=== PATIENT | male | born 1975 | race Caucasian/White ===

== ENCOUNTER → 2018-04-04 18:46 | Outpatient (REF) | payer BC, SELFPAY | LOC: LAB 18:46 | PROVIDERS: Visit Provider Otolaryngology | DX: H61.121 Hematoma of pinna, right ear (principal); H61.011 Acute perichondritis of right external ear; H92.01 Otalgia, right ear | CPT/HCPCS: 87070; 87205 ==

== ENCOUNTER → 2018-06-13 10:55 | Outpatient (CLI) | payer BC, SELFPAY ==
--- NOTE | 2018-06-13 10:58 | DI.RAD.S_ITS ---
PROCEDURE: XR CHEST 2V INDICATIONS: asthma TECHNIQUE: 2 views of the chest were acquired. COMPARISON: [facility], , CHEST 2 VIEW, 03/28/2015, 18:43. FINDINGS: Surgical changes and devices: None. Lungs and pleura: No pleural effusions or pneumothorax. Lungs are clear. Lung volumes are increased with flattening of the hemidiaphragms suggesting COPD/asthma. Mediastinum: Mediastinal contours are normal. Heart size is normal. Bones and chest wall: No suspicious bony abnormalities. Soft tissues appear unremarkable. IMPRESSION: No acute cardiopulmonary disease. Dictated by: Janusz SOLIZ Interpreted: Emil Rehman MD on 06/13/2018 at 11:18 Approved by: Emil Rehman M.D. on 06/13/2018 at 15:32
[2018-06-13 11:28] LABS: Add Manual Diff / Slide Review NO; Basophils Percent Auto 0.2 % (0-2); Hematocrit 45.2 % (41-53); Hemoglobin 15.2 g/dL (13.5-17.5); Lymphocytes Percent Auto 31.9 % (25-40); Mean Corpuscular HGB Conc 33.6 % (30-36); Mean Corpuscular Hemoglobin 31.2 PG (26-34); Mean Corpuscular Volume 92.8 fL (80-100); Monocytes Percent Auto 8.2 % (3-14); Neutrophils Absolute Auto 3400 /uL (3000-5900); Neutrophils Percent Auto 53.7 % (50-75); Platelet Count 271 X10^3/uL (150-400); Red Blood Cell Count 4.87 X10^6/uL (4.5-5.9); Red Cell Distribution Width 13.6 % (11.6-14.8); White Blood Cell Count 6.3 X10^3/uL (4.5-11.0)
[2018-06-13 12:06] LABS: Alanine Aminotransferase 22 IU/L (21-72); Albumin 4.3 g/dL (3.5-5.0); Albumin Globulin Ratio 1.7 (1.0-2.8); Alkaline Phosphatase 67 U/L (38-126); Aspartate Aminotransferase 18 IU/L (17-59); Bilirubin Total 0.7 mg/dL (0.2-1.3); Blood Urea Nitrogen 13 mg/dL (9-20); Calcium 9.8 mg/dL (8.4-10.2); Carbon Dioxide 28 mmol/L (22-32); Chloride 105 mmol/L (98-107); Cholesterol 192 mg/dL (140-199); Estimated Glomerular Filt Rate > 60.0 mL/min (>60); Globulin 2.5 g/dL (1.7-4.1); Glucose 101 mg/dL (70-100); HDL Cholesterol 39 mg/dL (40-60); HEMOLYSIS 20 (0-50); LDL Cholesterol Calculated 122 mg/dL (<100); Sodium 146 mmol/L (137-145); Total Protein 6.8 g/dL (6.3-8.2); Triglycerides 157 mg/dL (35-150)
[2018-06-13 12:35] LABS: Thyroid Stimulating Hormone 1.84 uIU/mL (0.47-4.68)
== END ==
PROVIDERS: Visit Provider Family Medicine
DX: J45.909 Unspecified asthma, uncomplicated (principal)
CPT/HCPCS: 36415; 71046; 80053; 80061; 84443; 85025

== ENCOUNTER → 2018-06-20 14:57 | Outpatient (CLI) | payer BC, SELFPAY ==
--- NOTE | 2018-06-27 08:18 | PM.PFT.1 ---
Pulmonary Function Test Referral & Results Date Patient Seen: 06/20/18 Requesting provider: Cliff Polanco Indication: Reactive airways Results: The spirometry demonstrates an FVC of 4.58 L which is 82% of predicted. The FEV1 was measured at 1.41 L which is 32% of predicted. The FEV1/FVC ratio was 31 which is 38% of predicted. Following the administration of bronchodilator there was 20% improvement in FEV1 and 92% improvement in FEF 25-75%. Lung volumes show an SVC of 4.44 L which is 83% of predicted. No diffusing capacity was performed The maximum voluntary ventilation was reduced Interpretation: This study demonstrates severe obstructive lung disease with an FEV1 of 32% of predicted. However there was significant benefit following bronchodilator as noted above both in small and large airway flows based on improvement in FEV1 and FEF 25-75% There is also mild restrictive lung disease present based on slight reduction in lung volumes
== END ==
PROVIDERS: PCP Family Medicine; Visit Provider Family Medicine
DX: J45.909 Unspecified asthma, uncomplicated (principal)
CPT/HCPCS: 94010; 94060; 94726; 94729

== ENCOUNTER 2021-06-06 20:05 | Emergency (ER) | payer OTHER, SELFPAY ==
[2021-06-06] VITALS (8 sets, daily range): BP systolic 109–124; BP diastolic 62–69; PULSE 59–69; RESP 8–14; O2SAT 95–98; BMI 24.8
--- NOTE | 2021-06-06 20:14 | DI.RAD.S_ITS ---
PROCEDURE: XR CHEST 1V INDICATIONS: chest pain TECHNIQUE: One view of the chest was acquired. COMPARISON: [facility], CR, XR CHEST 2V, 06/13/2018, 10:33. FINDINGS: Surgical changes and devices: None. Lungs and pleura: Lungs are clear. No pleural effusions or pneumothorax. Mediastinum: Mediastinal contours appear normal. Heart size is normal. Bones and chest wall: No suspicious bony lesions. Overlying soft tissues appear unremarkable. IMPRESSION: 1. No acute cardiopulmonary disease. Dictated by: Carmelo Bowman M.D. on 06/06/2021 at 21:10 Approved by: Carmelo Bowman M.D. on 06/06/2021 at 21:10
[2021-06-06 20:20] LABS: Add Manual Diff / Slide Review NO; Basophils Absolute Auto 200 /uL (0-100); Basophils Percent Auto 1.2 % (0-2); Eosinophils Absolute Auto 400 /uL (0-450); Eosinophils Percent Auto 2.4 % (2-4); Hematocrit 46.4 % (41-53); Hemoglobin 15.3 g/dL (13.5-17.5); Lymphocytes Absolute Auto 4700 /uL (1100-4500); Lymphocytes Percent Auto 29.4 % (25-40); Mean Corpuscular HGB Conc 32.9 % (30-36); Mean Corpuscular Hemoglobin 30.9 PG (26-34); Mean Corpuscular Volume 93.9 fL (80-100); Monocytes Absolute Auto 1100 /uL (0-900); Monocytes Percent Auto 6.7 % (3-14); Neutrophils Absolute Auto 9600 /uL (1500-7000); Neutrophils Percent Auto 60.3 % (50-75); Platelet Count 300 X10^3/uL (150-400); Red Blood Cell Count 4.94 X10^6/uL (4.5-5.9); Red Cell Distribution Width 13.7 % (11.6-14.8); White Blood Cell Count 15.9 X10^3/uL (4.5-11.0)
[2021-06-06 20:30] LABS: Alanine Aminotransferase 23 IU/L (<50); Albumin 4.4 g/dL (3.5-5.0); Albumin Globulin Ratio 1.7 (1.0-2.8); Alkaline Phosphatase 70 U/L (38-126); Aspartate Aminotransferase 30 IU/L (17-59); Bilirubin Total 0.9 mg/dL (0.2-1.3); Blood Urea Nitrogen 15 mg/dL (9-20); Calcium 9.2 mg/dL (8.4-10.2); Carbon Dioxide 25 mmol/L (22-32); Chloride 106 mmol/L (98-107); Creatine Kinase 81 U/L (55-170); Estimated Glomerular Filt Rate > 60.0 mL/min (>60); Globulin 2.6 g/dL (1.7-4.1); Glucose 112 mg/dL (70-100); HEMOLYSIS 17 (0-50); Lipase 117 U/L (23-300); Magnesium 2.3 mg/dL (1.6-2.3); Potassium 3.7 mmol/L (3.4-5.1); Sodium 139 mmol/L (137-145)
--- NOTE | 2021-06-06 20:40 | ED_ITS ---
HPI - General Adult General Chief complaint: Syncope Stated complaint: possible seizue, vommiting, syncope Time Seen by Provider: 06/06/21 20:09 History of Present Illness HPI narrative: 45-year-old gentleman recently diagnosed with a right inguinal hernia after multiple visits to [facility] and ultrasound confirming today with a surgical appointment scheduled for tomorrow. He has had significant pain and today was having ?fucking horrible pain? with associated nausea diaphoresis and a syncopal episode. He fell to the floor has the minor scratch to his left ear his partner noted approximately 20 seconds of ?twitching? followed by 1-2 minutes of decreased responsiveness. 911 was called and when medics arrived on scene he was found to be reviving with a blood pressure of 80/40 that responded nicely to a fluid bolus. On arrival in the ER he is awake, alert appropriate with systolic blood pressure of 115 still complaining of nausea but not having any inguinal hernia pain at this time Related Data Previous Rx's Medication Instructions Recorded albuterol sulfate 90 mcg/actuation 2 puff INHALATION QID PRN #6.7 gram 07/16/18 aerosol inhaler ipratropium 20 mcg-albuterol 100 2 puff INHALATION BID #4 gram 07/16/18 mcg/actuation mist for inhalation (Combivent Respimat) ondansetron 4 mg disintegrating 4 mg PO Q6H PRN #14 tab 06/07/21 tablet oxycodone-acetaminophen 5 mg-325 1 tab PO Q6H PRN #15 tab 06/07/21 mg tablet Allergies Allergy/AdvReac Type Severity Reaction Status Date / Time No Known Drug Allergies Allergy Verified 07/16/18 15:33 Review of Systems Review of Systems Narrative: Pertinent positive and negative findings as per HPI Remainder of review of systems is otherwise unremarkable for Constitutional: Fevers, chills, ENT: No sore throat, neck pain, ear pain CV: Chest pain, palpitations, Respiratory: Cough, wheeze, dyspnea GI: diarrhea, : Dysuria, hematuria, Patient History Social History Smoking Status: Former smoker alcohol intake: never Smoking Status: Former smoker (quit 09/2015) Exam Narrative Exam Narrative: General: Healthy appearing, in no acute distress. Able to give a complete and coherent history. Well-nourished well-developed HEENT: Moist mucous membranes, normal sclera with reactive pupils, minor scratch to the outer helix of the left ear, bleeding is controlled Neck: supple Respiratory: Lungs are clear to auscultation, no wheezing no rales no rhonchi. Full and symmetrical air movement Cardiac: Regular rate and rhythm no murmurs no bruits Abdomen: Soft, nontender, good bowel tones, no flank pain Groin: No tenderness at this point and no palpable hernias clearly not incarcerated at this time Skin: Warm and dry, no rashes Neurologic: Grossly neurologically intact with no obvious asymmetries or abnormalities Extremities: No trauma, well perfused Psych: Cooperative, appropriate insight and affect Initial Vital Signs Initial Vital Signs: Vital Signs Pulse Rate 64 06/06/21 20:15 Pulse Oximetry 97 06/06/21 20:15 Course Orders Ordered: ED Orders 06/06/21 20:10 Complete Blood Count AUTO DIFF Stat Comprehensive Metabolic Panel Stat Lipase Stat Magnesium Stat NT-proBNP (BNP-Adult 18+) Stat Troponin & CK Cardiac Panel Stat 06/06/21 20:14 XR chest 1V Stat EKG-12 Lead Stat 06/06/21 20:24 COVID19 -Nasal swab/Pre-Proc Stat 06/06/21 23:36 CT cervical spine wo con Stat CT head/brain wo con Stat Hydromorphone HCl (Hydromorphone 0.5 Mg Inj) 0.5 mg IV Q15MIN PRN PRN Reason: Pain, Last Admin: 06/07/21 01:22 Dose: 0.5 mg Documented by: SADIA Discontinued Medications Hydromorphone HCl (Hydromorphone 0.5 Mg Inj) 0.5 mg IV NOW ONE Stop: 06/06/21 23:30 Last Admin: 06/06/21 23:34 Dose: 0.5 mg Documented by: RAYMUNDO Ketorolac Tromethamine (Ketorolac 30 Mg/Ml Vial) 15 mg IV NOW ONE Stop: 06/06/21 23:22 Last Admin: 06/06/21 23:56 Dose: Not Given Documented by: SADIA Ondansetron HCl (Ondansetron 4 Mg/2 Ml Inj) 4 mg IV NOW ONE Stop: 06/06/21 23:57 Last Admin: 06/06/21 23:59 Dose: 4 mg Documented by: SADIA Ondansetron HCl (Ondansetron 4 Mg/2 Ml Inj) 4 mg IV NOW ONE Stop: 06/07/21 03:57 Ondansetron HCl (Ondansetron 4 Mg Odt Prepack) 1 bottle MISC SEEINSTR ONE Stop: 06/07/21 03:57 Oxycodone/Acetaminophen (Oxycodone/Acetaminophen 5/325 Tablet) 1 tab PO NOW ONE Stop: 06/07/21 03:57 Oxycodone/Acetaminophen (Oxycodone/Apap 5/325 Prepack) 1 bottle MISC SEEINSTR ONE Stop: 06/07/21 03:57 Vital Signs Vital signs: Vital Signs - 8 hr 06/06/21 20:15 06/06/21 20:30 06/06/21 21:00 Pulse Rate 64 59 L 60 Respiratory Rate 14 13 Blood Pressure 117/69 124/69 Pulse Oximetry 97 97 98 06/06/21 21:30 06/06/21 22:00 06/06/21 22:30 Pulse Rate 63 61 66 Respiratory Rate 11 L 12 8 L Blood Pressure 109/63 112/63 113/68 Pulse Oximetry 96 95 96 Medical Decision Making Lab Data Result diagrams: 06/06/21 20:10 06/06/21 20:10 Labs: Lab Results 06/06/21 06/06/21 06/06/21 Range/Units 20:10 20:10 20:24 WBC 15.9 H (4.5-11.0) X10^3/uL RBC 4.94 (4.5-5.9) X10^6/uL Hgb 15.3 (13.5-17.5) g/dL Hct 46.4 (41-53) % MCV 93.9 (80-100) fL MCH 30.9 (26-34) PG MCHC 32.9 (30-36) % RDW 13.7 (11.6-14.8) % Plt Count 300 (150-400) X10^3/uL Neut % (Auto) 60.3 (50-75) % Lymph % (Auto) 29.4 (25-40) % [place] % (Auto) 6.7 (3-14) % Eos % (Auto) 2.4 (2-4) % Baso % (Auto) 1.2 (0-2) % Neut # (Auto) 9600 H (2829-8153) /uL Lymph # (Auto) 4700 H (0787-1363) /uL [place] # (Auto) 1100 H (0-900) /uL Eos # (Auto) 400 (0-450) /uL Baso # (Auto) 200 H (0-100) /uL Sodium 139 (137-145) mmol/L Potassium 3.7 (3.4-5.1) mmol/L Chloride 106 (98-107) mmol/L Carbon Dioxide 25 (22-32) mmol/L BUN 15 (9-20) mg/dL Creatinine 1.00 (0.66-1.25) mg/dL Estimated GFR > 60.0 (>60) mL/min BUN/Creatinine Ratio 15.0 (6-22) Glucose 112 H (70-100) mg/dL Calcium 9.2 (8.4-10.2) mg/dL Magnesium 2.3 (1.6-2.3) mg/dL Total Bilirubin 0.9 (0.2-1.3) mg/dL AST 30 (17-59) IU/L ALT 23 (<50) IU/L Alkaline Phosphatase 70 (38-126) U/L Total Creatine Kinase 81 (55-170) U/L CK-MB (CK-2) TNP CK-MB (CK-2) Rel Index TNP Troponin I < 0.012 (0.01-0.034) ng/mL NT-Pro-B Natriuret Pep 54 (<125) pg/mL Total Protein 7.0 (6.3-8.2) g/dL Albumin 4.4 (3.5-5.0) g/dL Globulin 2.6 (1.7-4.1) g/dL Albumin/Globulin Ratio 1.7 (1.0-2.8) Lipase 117 (23-300) U/L SARS-CoV-2 (PCR) Negative (Negative) Imaging Data CT scan - head: Radiologist's Impression: No visualized skull fracture. If high clinical suspicion for skull base fracture, recommend repeating exam within cross- sectional imaging less than 5 mm. No acute intracranial process. Partial left mastoid effusion. Zeb Forrest, DO CT - cervical spine: Radiologist's Impression: No fracture or traumatic subluxation involving the cervical spine. Degenerative changes greatest at C6-C7 where there is mild intervertebral disc height loss reactive endplate change. Some fluid within the left mastoid air cells. Emphysematous disease of the visualized lung apices Zeb Forrest, Reformatted CT scan with fine cuts through basilar skull: Radiologist's Impression: No CT evidence of acute intracranial pathology. Left mastoid effusion. Basilar skull fracture was not confirmed on this exam. Ty Arellano MD ECG Data Interpretation: Sinus Gilberto at a rate of 56 Normal intervals, slightly leftward axis No acute ischemic changes MDM Narrative Medical decision making narrative: 45-year-old gentleman who comes in after a syncopal episode. He reports that he has been having significant pain from a right inguinal hernia. Has been seen at [facility] a couple of times has appointment with his surgeon tomorrow. The pain was apparently so bad that he became diaphoretic and then passed out. Initial report was that he scraped his ear on the wall but did not specifically hit his head. Patient had no complai nts at that time. Syncopal workup was done and only significant abnormality is an elevated white blood cell count which could well simply be demargination. He has no localizing signs or symptoms of infection otherwise. 1130 patient is re-examined, findings are reviewed and his is here now to corroborate the rest of the story. She reports that he hit the left ear and side of his head on the toilet with a very heavy fall. Initially he had had a bit of blood around his ear that was cleaned off there is a small scratch on the outside of his ear that was the presumed source of the blood. On re-examination he actually has a significant amount of blood that has continued to drain out of the ear that is appreciated on the sheets and I am concerned that there is also CSF. Otoscope reveals hemotympanum on the left side. Repeat exam of his cervical spine now indicates tenderness along the entire cervical spine he also has mastoid tenderness and tenderness along the base worse skull area. Certainly concerning at this time for a basilar skull fracture with CSF leak. CT scan of the head and cervical spine are done. He is now complaining of a headache which had not initially been his complaint. He is given Dilaudid for pain control. His initial complaint of the right inguinal hernia pain is not problematic at this time. 120am patient was able to sleep comfortably after .5mg of the law did. CT scan shows partial left mastoid effusion but no obvious skull fracture. Patient is re-examined there is no longer any additional fluid or blood leaking from the ER. Given large amount that was noted previously I still am strongly suspicious for a basilar skull fracture with possible CSF leak. Will follow Radiology recommendations with repeat CT scan with thin cross-sectional imaging less than 5 mm. Findings are concerned are reviewed with patient and his both of who m agree with additional imaging. Reformatted CT scan is able to confirm the absence of a basilar skull fracture. He does have a left mastoid effusion. He does have pain at the site of impact at the base of his skull however the right inguinal pain is now significantly improved. At this point he is safe for home discharge and will follow-up with his general surgeon regarding the inguinal hernia tomorrow Discharge Plan Departure Patient Disposition: Home Clinical Impression: Syncope, Inguinal hernia, Concussion, Hematotympanum of left ear, Brain concussion Instructions: DI for Syncope in Adults (Fainting) Activity Restrictions/Additional Instructions: Thank you for coming in today Please keep your appointment with the surgeon regarding your right sided hernia. I have given you additional Percocet to use for pain control. Prescription for Percocet as well as ondansetron for nausea have both been transmitted to [facility] and [facility] is for you to pickle cutter later today The pain you experienced from your hernia caused a syncopal episode with concerning head injury. With CT scans and special views obtained we have confirmed there is not a basilar skull fracture. There is no bleeding inside her head and there was no acute cervical spine injury. From this fall, you de finitely have a concussion and I do anticipate that your going to be even more sore over the next 24 hours. Using 400 mg of ibuprofen (2 quik-vhe-wgewvmi pills) and 1 Tylenol every 6 hours can be very helpful in controlling pain. For severe pain using to ibuprofen and 1 Percocet will be helpful. You may find that ice to the neck and back of your head is helpful also. Prescriptions: New oxycodone-acetaminophen 5-325 mg tablet 1 tab PO Q6H PRN (Reason: pain) Qty: 15 RF: 0 ondansetron 4 mg tablet,disintegrating 4 mg PO Q6H PRN (Reason: nausea and vomiting) Qty: 14 RF: 0 No Action ipratropium-albuterol [Combivent Respimat] 20-100 mcg/actuation mist 2 puff INHALATION BID Qty: 4 RF: 5 albuterol sulfate 90 mcg/actuation HFA aerosol inhaler 2 puff INHALATION QID PRN (Reason: shortness of breath) Qty: 6.7 RF: 5 Referrals: Walker Greenfield MD [Primary Care Provider] -
[2021-06-06 20:42] LABS: NT-proBNP (BNP-Adult 18+) 54 pg/mL (<125); Troponin I < 0.012 ng/mL (0.01-0.034)
[2021-06-06 20:56] LABS: COVID19 -Nasal RAPID Negative (Negative)
[2021-06-06] MEDS: HYDROMORPHONE 0.5 MG INJ IV (23:34)
--- NOTE | 2021-06-06 23:36 | DI.CT.S_ITS ---
PROCEDURE: CT HEAD/BRAIN WO CON INDICATIONS: fall. hemotympanum. concern for CSF leak, basilar skull fracture TECHNIQUE: Noncontrast 4.5 mm thick angled axial sections acquired from the foramen magnum to the vertex, with coronal and sagittal reformats. For radiation dose reduction, the following was used: automated exposure control, adjustment of mA and/or kV according to patient size. COMPARISON: [facility], CT, CT CERVICAL SPINE WO CON, 06/06/2021, 23:42. FINDINGS: Image quality: Excellent. CSF spaces: Basal cisterns are patent. No extra-axial fluid collections. Ventricles are normal in size and shape. Brain: No midline shift. No intracranial masses or hemorrhage. Gustafson-white matter interface is normal. Skull and face: Calvarium and visualized facial bones are intact, without suspicious lesions. No definitive skull base fracture. Sinuses: Scattered fluid is noted within the left mastoid air cells. IMPRESSION: 1. No acute intracranial process. 2. No definitive skull base fracture. If clinical concern persists, temporal bone CT is recommended. The above findings are concordant with preliminary report. Dictated by: Marie Ernst M.D. on 06/07/2021 at 7:42 Approved by: Marie Ernst M.D. on 06/07/2021 at 7:43
--- NOTE | 2021-06-06 23:36 | DI.CT.S_ITS ---
PROCEDURE: CT CERVICAL SPINE WO CON INDICATIONS: fall, cervical spine tenderness TECHNIQUE: Noncontrast 3 mm thick sections acquired from the skull base to the T4 level. Sagittal and coronal reformats were then constructed. For radiation dose reduction, the following was used: automated exposure control, adjustment of mA and/or kV according to patient size. COMPARISON: None. FINDINGS: Image quality: Excellent. Bones: No fractures or dislocations. Visualized superior ribs are intact. Multilevel degenerative changes are present most notable at C6-7 with disc space narrowing, subchondral sclerosis and anterior osteophytes. Soft tissues: Prevertebral soft tissues are normal in thickness. No paravertebral hematomas. No apical pneumothoraces. Emphysematous changes are present. Fluid is noted within the left mastoid air cells. IMPRESSION: Degenerative changes without visualized fracture. The above findings are concordant with preliminary report. Dictated by: Marie Ernst M.D. on 06/07/2021 at 7:43 Approved by: Marie Ernst M.D. on 06/07/2021 at 7:52
[2021-06-06] MEDS: ONDANSETRON 4 MG/2 ML INJ IV (23:59)
[2021-06-07] VITALS (10 sets, daily range): BP systolic 126; BP diastolic 70; PULSE 64–73; RESP 10–13
[2021-06-07] MEDS: HYDROMORPHONE 0.5 MG INJ IV (01:22)
[2021-06-07] MEDS: OXYCODONE/APAP 5/325 PREPACK 1 BOTTLE MISC (04:06)
[2021-06-07] MEDS: ONDANSETRON 4 MG ODT PREPACK 1 BOTTLE MISC (04:06)
[2021-06-07] MEDS: ONDANSETRON 4 MG/2 ML INJ IV (04:06)
[2021-06-07] MEDS: OXYCODONE/ACETAMINOPHEN 5/325 TABLET 1 TAB PO (04:06)
== END 2021-06-07 04:32 | disposition home or self-care (01) ==
PROVIDERS: Emergency Provider Emergency Medicine; PCP Family Medicine
DX: R55 Syncope and collapse (principal); K40.90 Unilateral inguinal hernia, without obstruction or gangrene, not specified as recurrent; S06.0X0A Concussion without loss of consciousness, initial encounter; H74.8X2 Other specified disorders of left middle ear and mastoid; W18.09XA Striking against other object with subsequent fall, initial encounter; Z20.822 Contact with and (suspected) exposure to COVID-19
CPT/HCPCS: 70450; 71045; 72125; 80053; 82550; 83690; 83735; 83880; 84484; 85025; 87635; 93005; 93010; 96374; 96375; 96376; 99284; C9803; J1170; J2405

== ENCOUNTER 2023-11-30 10:39 | Inpatient (IN) | payer OTHER, SELFPAY ==
[2023-11-30] VITALS (64 sets, daily range): BP systolic 86–136; BP diastolic 56–82; PULSE 0–91; RESP 9–36; TEMP 35.3–36.2; O2SAT 96–100; BMI 53.8; BMI 24.3
--- NOTE | 2023-11-30 | DI.RAD.S_ITS ---
PROCEDURE: XR CHEST 1V INDICATIONS: left chest tube TECHNIQUE: One view of the chest was acquired. COMPARISON: [facility], CR, XR CHEST 1V, 11/30/2023, 10:51. FINDINGS: Surgical changes and devices: Left upper and mid lung pulmonary sutures. Left-sided chest tube. Lungs and pleura: Lungs are clear. No pleural effusions or definite pneumothorax. Mediastinum: Mediastinal contours appear normal. Heart size is normal. Bones and chest wall: No suspicious bony lesions. Overlying soft tissues appear unremarkable. Left chest wall subcutaneous air. IMPRESSION: Postsurgical changes in the left lung. Left-sided chest tube remains in place with no definite pneumothorax. Dictated by: Soto Chambers M.D. on 11/30/2023 at 19:48 Approved by: Soto Chambers M.D. on 11/30/2023 at 19:50
--- NOTE | 2023-11-30 10:41 | ED_ITS ---
HPI - General Adult General Chief complaint: Shortness of Breath/Dyspnea Stated complaint: SOB Time Seen by Provider: 11/30/23 10:40 Source: patient and EMS Mode of arrival: EMS Limitations: no limitations History of Present Illness HPI narrative: Patient is a 47-year-old male. Approximately 2 months ago underwent what sounds like a partial lobectomy by Dr. Hernandez at the [facility]. Patient states that this was to reduce the size of his lungs secondary to COPD. States things have gone well. Is at his normal state of health until earlier this morning he coughed and then had sudden left-sided chest discomfort and shortness of breath. EMS was called. Upon their arrival found the patient to be hypoxic in the 80s. He was placed on a non-rebreather. Oxygen saturations are now in the 90s. They also report that he did have 1 episode of hypotension. Upon arrival patient is having left-sided chest discomfort and shortness of breath. No fevers. Related Data Previous Rx's Medication Instructions Recorded albuterol sulfate 90 mcg/actuation 2 puff inhalation QID PRN 07/16/18 aerosol inhaler shortness of breath #6.7 grams ipratropium 20 mcg-albuterol 100 2 puff inhalation BID #4 grams 07/16/18 mcg/actuation mist for inhalation (Combivent Respimat) ondansetron 4 mg disintegrating 4 mg PO Q6H PRN nausea and 06/07/21 tablet vomiting #14 tabs oxycodone-acetaminophen 5 mg-325 1 tab PO Q6H PRN pain #15 tabs 06/07/21 mg tablet Allergies Allergy/AdvReac Type Severity Reaction Status Date / Time No Known Drug Allergies Allergy Verified 07/16/18 15:33 Review of Systems Review of Systems ROS Unobtainable: All systems reviewed & are unremarkable except as noted in HPI and below Patient History Social History Smoking Status: Former smoker alcohol intake: never Smoking Status: Former smoker Exam Initial Vital Signs Initial Vital Signs: Vital Signs Temperature 95.6 F L 11/30/23 10:45 Pulse Rate 79 11/30/23 10:45 Respiratory Rate 12 11/30/23 10:45 Blood Pressure 86/56 L 11/30/23 10:45 Pulse Oximetry 97 11/30/23 10:45 Oxygen Delivery Method Non -Rebreather 11/30/23 10:45 Oxygen Flow Rate 15 11/30/23 10:45 Const General: cooperative and No ill appearing HENMT Head: normal to inspection and normocephalic Resp Other: His in mild respiratory distress. Is on oxygen by non-rebreather. Clear breath sounds on the right. No breath sounds on the left. Cardio Rate: regular rate Rhythm: regular rhythm GI Inspection: normal to inspection and non-distended Skin General: no rashes or lesions noted Extrem General: normal to inspection and capillary refill normal Procedures Chest Tube Chest Tube 1: Chest Tube Location: left Size of Tube (cm): 28 Chest Tube Prep: Yes betadine prep and sterile drapes applied Local Anesthetic: lidocaine 1% Amount of anesthesia used (mL): 10 Incision Made With: #11 blade Post Procedure: sutured to skin and sterile dressing applied Tube Drainage: none Post Procedure CXR?: Yes Patient Tolerated Procedure: Yes Scores GCS Naina coma scale eye opening: Spontaneous Compton coma scale verbal response: Orientated Compton coma scale motor response: Obey commands Compton coma scale total score: 15 Course Orders Ordered: ED Orders 11/30/23 10:39 Complete Blood Count AUTO DIFF Stat Comprehensive Metabolic Panel Stat Lipase Stat 11/30/23 10:41 XR chest 1V Stat EKG-12 Lead Stat 11/30/23 11:12 Covid-19 + FLU A/B + RSV - PCR Stat Sodium Chloride (Normal Saline 0.9%) 1,000 mls @ 125 mls/hr IV CONT CAESAR Last Admin: 11/30/23 11:26 Dose: 125 mls/hr Documented By: NEHA Discontinued Medications Morphine Sulfate (Morphine 4 Mg/Ml Inj) 4 mg IV NOW ONE Stop: 11/30/23 11:19 Last Admin: 11/30/23 11:00 Dose: 4 mg Documented By: NEHA Morphine Sulfate (Morphine 4 Mg/Ml Inj) 4 mg IV NOW ONE Stop: 11/30/23 11:24 Last Admin: 11/30/23 11:30 Dose: 4 mg Documented By: NEHA Ondansetron HCl (Ondansetron 4 Mg/2 Ml Inj) 4 mg IV NOW ONE Stop: 11/30/23 11:24 Last Admin: 11/30/23 11:30 Dose: 4 mg Documented By: NEHA Vital Signs Vital signs: Vital Signs - 8 hr 11/30/23 10:45 11/30/23 10:46 11/30/23 10:48 Temperature 95.6 F L Pulse Rate 79 82 Respiratory Rate 12 20 Blood Pressure 86/56 L 96/67 Pulse Oximetry 97 98 Oxygen Delivery Method Non -Rebreather Oxygen Flow Rate 15 11/30/23 10:48 11/30/23 10:50 11/30/23 10:50 Temperature Pulse Rate 71 80 Respiratory Rate 13 13 Blood Pressure 121/78 Pulse Oximetry 97 98 Oxygen Delivery Method Oxygen Flow Rate 11/30/23 10:56 11/30/23 10:56 11/30/23 11:00 Temperature Pulse Rate 91 H 29 L Respiratory Rate 23 36 H Blood Pressure 110/79 110/68 Pulse Oximetry 96 98 Oxygen Delivery Method Oxygen Flow Rate 11/30/23 11:02 11/30/23 11:02 11/30/23 11:04 Temperature Pulse Rate 0 L 54 L 51 L Respiratory Rate 25 H 22 Blood Pressure Pulse Oximetry 100 100 Oxygen Delivery Method Oxygen Flow Rate 11/30/23 11:05 Temperature Pulse Rate Respiratory Rate Blood Pressure 122/65 Pulse Oximetry Oxygen Delivery Method Oxygen Flow Rate Medical Decision Making Lab Data Lab results reviewed: Yes I reviewed the patient's lab results. 11/30/23 10:39 11/30/23 10:39 Labs: Lab Results 11/30/23 Range/Units 10:39 WBC 9.4 (4.5-11.0) X10^3/uL RBC 4.85 (4.5-5.9) X10^6/uL Hgb 15.3 (13.5-17.5) g/dL Hct 46.0 (41-53) % MCV 94.8 (80-100) fL MCH 31.5 (26-34) PG MCHC 33.2 (30-36) % RDW 13.7 (11.6-14.8) % Plt Count 343 (150-400) X10^3/uL Neut % (Auto) 56.5 (50-75) % Lymph % (Auto) 33.6 (25-40) % [place] % (Auto) 7.2 (3-14) % Eos % (Auto) 2.0 (2-4) % Baso % (Auto) 0.7 (0-2) % Neut # (Auto) 5300 (1044-7027) /uL Lymph # (Auto) 3200 (8660-7472) /uL [place] # (Auto) 700 (0-900) /uL Eos # (Auto) 200 (0-450) /uL Baso # (Auto) 100 (0-100) /uL Sodium 143 (137-145) mmol/L Potassium 4.5 (3.4-5.1) mmol/L Chloride 108 H (98-107) mmol/L Carbon Dioxide 29 (22-32) mmol/L BUN 10 (9-20) mg/dL Creatinine 0.93 (0.66-1.25) mg/dL Estimated GFR > 60 (>60) mL/min BUN/Creatinine Ratio 10.8 (6-22) Glucose 123 H (70-100) mg/dL Calcium 9.5 (8.4-10.2) mg/dL Total Bilirubin 0.9 (0.2-1.3) mg/dL AST 24 (17-59) IU/L ALT 19 (<50) IU/L Alkaline Phosphatase 84 (38-126) U/L Total Protein 7.5 (6.3-8.2) g/dL Albumin 4.4 (3.5-5.0) g/dL Globulin 3.1 (1.7-4.1) g/dL Albumin/Globulin Ratio 1.4 (1.0-2.8) Lipase 263 (23-300) U/L [facility] Narrative Medical decision making narrative: Upon arrival patient was not hypoxic however he was on non-rebreather. He had no breath sounds on the left. Bedside ultrasound not show any lung sliding. Initially attempted placing a pigtail catheter however had quite a bit of difficulty advancing the catheter. On a supervisor electric motor testing chest x-ray appeared that it was in the thoracic cavity but there was still a pneumothorax and I felt that it would not be appropriate to treat his condition so it was removed. I then placed a left-sided 28 Croatian chest tube. During the placement of the chest tube the patient had an episode of bradycardia. Became unresponsive. He did require approximately 10 seconds of chest compressions however once I placed the chest tube pulses returned. Unsure whether or not he had a syncopal episode as he was having quite a bit of discomfort at the time. He also potentially had tension pneumothorax that was resolved with placement of the tube. After that 1 brief episode the patient is alert and oriented. We are able to wean him off of the non-rebreather in his now on 4 L of nasal cannula. Chest x-ray does show re-expansion of the lung. I did discuss the case with Dr. Lane on-call with General surgery who asked that I call thoracic surgery at the [facility]. I did talk with the thoracic surgeon on-call. They stated that if the lung has re-expanded and there was no air leak (which there was not) that this would be managed as a routine chest tube. They did recommend prolonging the amount of time that the patient is on suction even up to 48 hours before placing him to water seal. I then discussed all this with Dr. Lane. They also stated that we do need to observe for potential COPD exacerbation. Dr. Lane is comfortable accepting patient at this facility. Discussed the need for admission with the patient and family at bedside. Expressed understanding and agreement. Critical Care Time Critical Care Time Critical Care Time: Yes Total Critical Care Time: 35 Attestation: The high probability of a clinically significant, sudden or life threatening deterioration of the [respiratory] system(s) required my full and direct attention, intervention and personal management. The aggregate critical care time was [35] minutes. This time is in addition to time spent performing reported procedures but includes the following: [x] Data Review and interpretation [x] Patient assessment and monitoring of vital signs [x] Documentation [x] Medication orders and management Discharge Plan Departure Patient Disposition: Admitted As Inpatient Clinical Impression: COPD (chronic obstructive pulmonary disease), Pneumothorax on left Admit Date/Time: 11/30/23 11:57 Admit Provider: Brody Lane
--- NOTE | 2023-11-30 10:41 | DI.RAD.S_ITS ---
PROCEDURE: XR CHEST 1V INDICATIONS: Probable left-sided pneumo TECHNIQUE: One view of the chest was acquired. COMPARISON: [facility], CR, XR CHEST 1V, 06/06/2021, 20:52. [facility], CR, XR CHEST 2V, 06/13/2018, 10:33. FINDINGS: Surgical changes and devices: Left pulmonary sutures. Lungs and pleura: Lungs are clear. No pleural effusions or pneumothorax. Mediastinum: Mediastinal contours appear normal. Heart size is normal. Bones and chest wall: No suspicious bony lesions. Overlying soft tissues appear unremarkable. Subcutaneous emphysema along the left chest wall. IMPRESSION: Postsurgical changes in the left lung. No definite pneumothorax is seen. Dictated by: Zhen Wong M.D. on 11/30/2023 at 11:16 Approved by: Zhen Wong M.D. on 11/30/2023 at 11:18
[2023-11-30] MEDS: MORPHINE 4 MG/ML INJ IV ×4 (11:00→16:30)
--- NOTE | 2023-11-30 11:03 | PC.NURSE ---
Addendum entered by Aly Martin 11/30/23 12:44: episode of compression lasted approx 10 seconds. Original Note: Patient had a episode of asystole while chest tube insertion. Compression started and pads placed immediately. Patient had return of spontaneous circulation within 15 seconds. MD at beside. patient vitals now stable.
[2023-11-30] MEDS: SODIUM CHLORIDE 0.9% 1,000 ML 125 ML IV ×2 (11:26→20:13)
[2023-11-30] MEDS: ONDANSETRON 4 MG/2 ML INJ IV (11:30)
[2023-11-30 11:32] LABS: Add Manual Diff / Slide Review NO; Basophils Absolute Auto 100 /uL (0-100); Basophils Percent Auto 0.7 % (0-2); Eosinophils Absolute Auto 200 /uL (0-450); Hemoglobin 15.3 g/dL (13.5-17.5); Lymphocytes Absolute Auto 3200 /uL (1100-4500); Lymphocytes Percent Auto 33.6 % (25-40); Mean Corpuscular HGB Conc 33.2 % (30-36); Mean Corpuscular Hemoglobin 31.5 PG (26-34); Mean Corpuscular Volume 94.8 fL (80-100); Monocytes Absolute Auto 700 /uL (0-900); Monocytes Percent Auto 7.2 % (3-14); Neutrophils Absolute Auto 5300 /uL (1500-7000); Neutrophils Percent Auto 56.5 % (50-75); Platelet Count 343 X10^3/uL (150-400); Red Blood Cell Count 4.85 X10^6/uL (4.5-5.9); Red Cell Distribution Width 13.7 % (11.6-14.8); White Blood Cell Count 9.4 X10^3/uL (4.5-11.0)
[2023-11-30 11:44] LABS: Alanine Aminotransferase 19 IU/L (<50); Albumin 4.4 g/dL (3.5-5.0); Albumin Globulin Ratio 1.4 (1.0-2.8); Alkaline Phosphatase 84 U/L (38-126); Aspartate Aminotransferase 24 IU/L (17-59); BUN Creatinine Ratio 10.8 (6-22); Bilirubin Total 0.9 mg/dL (0.2-1.3); Blood Urea Nitrogen 10 mg/dL (9-20); Calcium 9.5 mg/dL (8.4-10.2); Carbon Dioxide 29 mmol/L (22-32); Chloride 108 mmol/L (98-107); Estimated Glomerular Filt Rate > 60 mL/min (>60); Globulin 3.1 g/dL (1.7-4.1); Glucose 123 mg/dL (70-100); HEMOLYSIS 34 (0-50); Lipase 263 U/L (23-300); Potassium 4.5 mmol/L (3.4-5.1); Sodium 143 mmol/L (137-145); Total Protein 7.5 g/dL (6.3-8.2)
--- NOTE | 2023-11-30 11:51 | PC.NURSE ---
Patient is alert and oriented now has been since his brief episode of cardiac arrest. is at bedside.
[2023-11-30] MEDS: LIDOCAINE 1% 20 ML (11:59)
[2023-11-30 12:05] LABS: Influenza A - CEPHEID Flu A NEGATIVE (NEGATIVE); Influenza B - CEPHEID Flu B NEGATIVE (NEGATIVE); Respiratory Syncytial Virus Negative (Negative)
[2023-11-30 12:13] LABS: COVID-19 CEPHEID 4-PLEX PCR Negative (Negative)
--- NOTE | 2023-11-30 13:53 | P.HP_ITS ---
History of Present Illness History of Present Illness Date Patient Seen: 11/30/23 Time Patient Seen: 13:53 Chief complaint: SOB Narrative: Karl is a 47-year-old man who presented to the emergency department today with acute onset left chest pain and shortness of breath. An emergent chest tube was placed in the ER by Dr. Chiu for a left pneumothorax with good results. He did have a VATS procedure at [facility] in September for some sort of long condition related to over expansion of the lung. Dr. Chiu spoke to the thoracic surgeon at [facility] who recommended admission for chest tube management and recommended at least 2 days of wall suction before transitioning to water seal. [facility] Social History Smoking Status: Former smoker alcohol intake: never Meds Home Medications and Allergies Home Medications Medication Instructions Recorded Confirmed Type albuterol sulfate 90 mcg/actuation 2 puff inhalation QID PRN 07/16/18 Rx aerosol inhaler shortness of breath #6.7 grams ipratropium 20 mcg-albuterol 100 2 puff inhalation BID #4 grams 07/16/18 Rx mcg/actuation mist for inhalation (Combivent Respimat) ondansetron 4 mg disintegrating 4 mg PO Q6H PRN nausea and 06/07/21 Rx tablet vomiting #14 tabs oxycodone-acetaminophen 5 mg-325 1 tab PO Q6H PRN pain #15 tabs 06/07/21 Rx mg tablet Allergies Allergy/AdvReac Type Severity Reaction Status Date / Time No Known Drug Allergies Allergy Verified 07/16/18 15:33 Exam Vital Signs (past 8 hours): - 11/30/23 10:45 11/30/23 10:46 11/30/23 10:48 Temperature 95.6 F L Pulse Rate 79 82 Respiratory Rate 12 20 Blood Pressure 86/56 L 96/67 Pulse Oximetry 97 98 Oxygen Delivery Method Non -Rebreather Oxygen Flow Rate 15 11/30/23 10:48 11/30/23 10:50 11/30/23 10:50 Temperature Pulse Rate 71 80 Respiratory Rate 13 13 Blood Pressure 121/78 Pulse Oximetry 97 98 Oxygen Delivery Method Oxygen Flow Rate 11/30/23 10:56 11/30/23 10:56 11/30/23 11:00 Temperature Pulse Rate 91 H 29 L Respiratory Rate 23 36 H Blood Pressure 110/79 110/68 Pulse Oximetry 96 98 Oxygen Delivery Method Oxygen Flow Rate 11/30/23 11:02 11/30/23 11:02 11/30/23 11:04 Temperature Pulse Rate 0 L 54 L 51 L Respiratory Rate 25 H 22 Blood Pressure Pulse Oximetry 100 100 Oxygen Delivery Method Oxygen Flow Rate 11/30/23 11:05 11/30/23 11:05 11/30/23 11:10 Temperature Pulse Rate 59 L Respiratory Rate 13 Blood Pressure 122/65 126/73 Pulse Oximetry 99 Oxygen Delivery Method Nasal Cannula Oxygen Flow Rate 4 11/30/23 11:10 11/30/23 11:15 11/30/23 11:15 Temperature Pulse Rate 60 61 Respiratory Rate 18 16 Blood Pressure 124/66 Pulse Oximetry 100 100 Oxygen Delivery Method Oxygen Flow Rate 11/30/23 11:20 11/30/23 11:20 11/30/23 11:25 Temperature Pulse Rate 65 Respiratory Rate 18 Blood Pressure 120/79 124/74 Pulse Oximetry 100 Oxygen Delivery Method Oxygen Flow Rate 11/30/23 11:25 11/30/23 11:30 11/30/23 11:30 Temperature Pulse Rate 61 64 Respiratory Rate 16 12 Blood Pressure 116/72 Pulse Oximetry 100 100 Oxygen Delivery Method Oxygen Flow Rate 11/30/23 11:35 11/30/23 11:35 11/30/23 11:40 Temperature Pulse Rate 67 Respiratory Rate 15 Blood Pressure 116/75 119/78 Pulse Oximetry 100 Oxygen Delivery Method Oxygen Flow Rate 11/30/23 11:40 11/30/23 11:45 11/30/23 11:45 Temperature Pulse Rate 72 71 Respiratory Rate 14 13 Blood Pressure 135/76 Pulse Oximetry 100 100 Oxygen Delivery Method Oxygen Flow Rate 11/30/23 11:50 11/30/23 11:50 11/30/23 11:55 Temperature Pulse Rate 72 Respiratory Rate 17 Blood Pressure 127/72 121/78 Pulse Oximetry 100 Oxygen Delivery Method Oxygen Flow Rate 11/30/23 11:55 11/30/23 12:00 11/30/23 12:00 Temperature Pulse Rate 72 73 Respiratory Rate 13 14 Blood Pressure 122/75 Pulse Oximetry 100 100 Oxygen Delivery Method Oxygen Flow Rate 11/30/23 12:05 11/30/23 12:05 11/30/23 12:10 Temperature Pulse Rate 77 Respiratory Rate 12 Blood Pressure 121/81 129/76 Pulse Oximetry 100 Oxygen Delivery Method Oxygen Flow Rate 11/30/23 12:10 11/30/23 12:15 11/30/23 12:15 Temperature Pulse Rate 70 72 Respiratory Rate 15 14 Blood Pressure 129/81 Pulse Oximetry 100 100 Oxygen Delivery Method Oxygen Flow Rate 11/30/23 12:20 11/30/23 12:20 11/30/23 12:25 Temperature Pulse Rate 72 Respiratory Rate 14 Blood Pressure 125/75 120/75 Pulse Oximetry 100 Oxygen Delivery Method Oxygen Flow Rate 11/30/23 12:25 11/30/23 12:30 11/30/23 12:30 Temperature Pulse Rate 70 68 Respiratory Rate 13 12 Blood Pressure 117/73 Pulse Oximetry 100 100 Oxygen Delivery Method Nasal Cannula Oxygen Flow Rate 4 11/30/23 12:35 11/30/23 12:35 Temperature Pulse Rate 69 Respiratory Rate 9 L Blood Pressure 116/76 Pulse Oximetry 100 Oxygen Delivery Method Oxygen Flow Rate Oxygen Delivery Method Nasal Cannula Oxygen Flow Rate 4 Narrative Exam Narrative: Speaking in full sentences No labored breathing Chest tube is in good position with no air leak Objective Labs 11/30/23 10:39 11/30/23 10:39 Labs: Laboratory Results - last 24 hr 11/30/23 11/30/23 10:39 11:12 WBC 9.4 RBC 4.85 Hgb 15.3 Hct 46.0 MCV 94.8 MCH 31.5 MCHC 33.2 RDW 13.7 Plt Count 343 Neut % (Auto) 56.5 Lymph % (Auto) 33.6 [place] % (Auto) 7.2 Eos % (Auto) 2.0 Baso % (Auto) 0.7 Neut # (Auto) 5300 Lymph # (Auto) 3200 [place] # (Auto) 700 Eos # (Auto) 200 Baso # (Auto) 100 Sodium 143 Potassium 4.5 Chloride 108 H Carbon Dioxide 29 BUN 10 Creatinine 0.93 Estimated GFR > 60 BUN/Creatinine Ratio 10.8 Glucose 123 H Calcium 9.5 Total Bilirubin 0.9 AST 24 ALT 19 Alkaline Phosphatase 84 Total Protein 7.5 Albumin 4.4 Globulin 3.1 Albumin/Globulin Ratio 1.4 Lipase 263 SARS-CoV-2 (PCR) Negative Influenza A (RT-PCR) Flu a negative Influenza B (RT-PCR) Flu b negative RSV (PCR) Negative Assessment & Plan Assessment and plan (1) Pneumothorax on left: Status: Acute Plan Admit to the floor for chest tube management He will stay on water seal for at least 2 days
[2023-11-30 16:09] LABS: MRSA (Nasal) PCR Not Detected (Not Detect)
[2023-12-01] VITALS (28 sets, daily range): BP systolic 108–130; BP diastolic 64–80; PULSE 59–78; RESP 11–19; TEMP 36.2–36.8; O2SAT 94–99
[2023-12-01] MEDS: SODIUM CHLORIDE 0.9% 1,000 ML 125 ML IV (05:18)
[2023-12-01] MEDS: HYDROCODONE/ACET 5/325 TABLET 1 TAB PO ×3 (05:23→18:52)
[2023-12-01] MEDS: IBUPROFEN 600 MG TABLET PO ×2 (11:01→18:52)
--- NOTE | 2023-12-01 12:39 | CM.DANOTE ---
Patient is a 47 yo male who was admitted [place] on 11/30/23 for Pneumothorax. Pt has UMR for insurance and his PCP is Dr. Walker Greenfield. EMR was reviewed. Per Surgeon, pt has hx of recent thoracic surgery at in Sep 2023 for a lung node and now admitted for pneumothorax with chest tube and plan for water seal for 2 days. Not yet medically stable to d/c today. Per RN, pt moved from room 229 in ICU to floor care in and no concerns noted at this time. Patient lives in [place] with his spouse and has local supportive brother and pt is active and independent at baseline and works and does not use DME for ambulation. Pt's DPOA is informally his spouse Damaris. Pt's preference is to d/c home when medically stable and currently does not anticipate any d/c needs and confirms family can provide transport at discharge. Plan: SW to follow closely for further Surgeon recommendations towards eventual chest tube removal and confirm safe d/c plan of home with spouse and any further identified discharge planning needs. RAJAT Rico Discharge Planning/Care Management CM Discharge Assessment Start: 12/01/23 12:25 Freq: Status: Active Protocol: Document 12/01/23 12:26 BF (Rec: 12/01/23 12:36 BF [id number]) Discharge Planning Assessment Assigned [place] RAJAT Mccoy DPOA/Assigned Designee Name none Advance Directives? No Advance Directives on File No History Provided By Patient,Medical Record Has Patient been admitted in last 30 No days? Prior Living Arrangements House Household Members spouse Type of transporation used prior to Drives own vehicle admit Independent with ADL's Yes Is patient alert and oriented? Yes Caregiver for Another No Barriers to Discharge No Discharge Plan Home Transportation Arrangement Family Referrals Initiated None needed Whiteboard Updated in Patient Room with Yes name and ext. # of [place] Review Status In Process Please Provide Date Initial DC 12/01/23 Assessment Was Performed Next Review Type Continued Stay Review
--- NOTE | 2023-12-01 14:02 | DI.RAD.S_ITS ---
PROCEDURE: XR CHEST 1V INDICATIONS: chest tube TECHNIQUE: One view of the chest was acquired. COMPARISON: [facility], CR, XR CHEST 1V, 06/06/2021, 20:52. [facility], CR, XR CHEST 1V, 11/30/2023, 10:51. [facility], CR, XR CHEST 1V, 11/30/2023, 13:58. FINDINGS: Surgical changes and devices: There has been interval adjustment of the position of the left-sided chest tube. Lungs and pleura: Minimal left-sided pneumothorax is seen. Mediastinum: Mediastinal contours appear normal. Heart size is normal. Bones and chest wall: No suspicious bony lesions. Age-appropriate bony degenerative changes are seen. Mild soft tissue gas is seen on the left. IMPRESSION: Interval adjustment of left-sided chest tube, with a minimal left-sided pneumothorax. Left lung postoperative change is seen. Dictated by: Terrell Carter M.D. on 12/01/2023 at 13:25 Approved by: Terrell Carter M.D. on 12/01/2023 at 13:26
--- NOTE | 2023-12-01 15:21 | PM.PN.1 ---
Subjective Subjective Date Patient Seen: 12/01/23 Time Patient Seen: 15:21 Interval history: Karl feels better today. A chest x-ray was just performed today that shows a trace left pneumothorax with the tube in position in the chest Exam Vital Signs (past 8 hours): - 12/01/23 07:30 12/01/23 08:00 12/01/23 08:30 Pulse Rate 64 59 L 74 Respiratory Rate 12 12 17 Pulse Oximetry 97 97 94 12/01/23 09:00 12/01/23 09:30 12/01/23 10:00 Pulse Rate 74 71 67 Respiratory Rate 14 15 15 Pulse Oximetry 95 95 95 12/01/23 10:30 Pulse Rate 70 Respiratory Rate 18 Pulse Oximetry 95 Fraction of Inspired Oxygen 36 SaO2/FiO2 Ratio 269 Oxygen Delivery Method Nasal Cannula Oxygen Flow Rate 2 Narrative Exam Narrative: No air leak No respiratory variation Objective Labs 11/30/23 10:39 11/30/23 10:39 Labs: Laboratory Results - last 24 hr 11/30/23 14:15 Nasal Screen MRSA (PCR) Not detected PFSH Social History household members: spouse Smoking Status: Former smoker alcohol intake: never Assessment & Plan Assessment and plan (1) Pneumothorax on left: Status: Acute Plan Continue with chest tube to suction Another x-ray tomorrow
[2023-12-01] MEDS: methocarbamoL 500 MG TABLET PO ×2 (17:23→20:58)
[2023-12-02 01:09] VITALS: BP 127/68; PULSE 80; RESP 16; TEMP 37.3; O2SAT 98
[2023-12-02 06:10] VITALS: BP 116/70; PULSE 68; RESP 16; TEMP 36.6; O2SAT 95
[2023-12-02 08:25] VITALS: BP 114/81; PULSE 63; RESP 18; TEMP 36.4; O2SAT 99
[2023-12-02] MEDS: IBUPROFEN 600 MG TABLET PO ×2 (08:33→15:46)
[2023-12-02] MEDS: HYDROCODONE/ACET 5/325 TABLET 1 TAB PO ×2 (08:33→15:59)
[2023-12-02] MEDS: methocarbamoL 500 MG TABLET PO ×2 (08:33→21:18)
--- NOTE | 2023-12-02 10:32 | DI.RAD.S_ITS ---
PROCEDURE: XR CHEST 1V INDICATIONS: chest tube TECHNIQUE: One view of the chest was acquired. COMPARISON: [facility], CR, XR CHEST 2V, 06/13/2018, 10:33. [facility], CR, XR CHEST 1V, 12/01/2023, 14:03. [facility], CR, XR CHEST 1V, 11/30/2023, 13:58. FINDINGS: Surgical changes and devices: Suture material in the lungs bilaterally. Left chest tube at the lateral aspect of the thorax is unchanged. Lungs and pleura: Lungs appear clear. No definite pneumothorax. No pleural effusion. Mediastinum: Mediastinal contours appear unchanged. Heart size is unchanged. Bones and chest wall: No suspicious bony lesions. Trace left subcutaneous emphysema. IMPRESSION: Left-sided chest tube is unchanged. No definite pneumothorax. Dictated by: Pee Serrano M.D. on 12/02/2023 at 12:32 Approved by: Pee Serrano M.D. on 12/02/2023 at 12:35
--- NOTE | 2023-12-02 12:38 | P.PN_ITS ---
Subjective Subjective Date Patient Seen: 12/02/23 Time Patient Seen: 12:38 Interval history: No changes Chest x-ray today shows no pneumothorax Exam Vital Signs (past 8 hours): - 12/02/23 06:10 12/02/23 08:25 Temperature 97.8 F 97.6 F Pulse Rate 68 63 Respiratory Rate 16 18 Blood Pressure 116/70 114/81 Pulse Oximetry 95 99 Oxygen Flow Rate 0 Fraction of Inspired Oxygen 36 SaO2/FiO2 Ratio 269 Oxygen Delivery Method Room Air Oxygen Flow Rate 0 Narrative Exam Narrative: No air leak Objective Labs 11/30/23 10:39 11/30/23 10:39 [facility] Social History household members: spouse Smoking Status: Former smoker alcohol intake: never Assessment & Plan Assessment and plan (1) Pneumothorax on left: Status: Acute Plan Water seal Clamp trial tomorrow morning
[2023-12-02 15:32] VITALS: BP 126/80; PULSE 68; RESP 18; TEMP 36.8; O2SAT 97
[2023-12-02 19:00] VITALS: BP 133/87; PULSE 77; RESP 18; TEMP 36.2; O2SAT 95
[2023-12-02] MEDS: BREZTRI 2 EACH PO (21:18)
[2023-12-02 23:00] VITALS: BP 114/64; PULSE 63; RESP 18; TEMP 36.1; O2SAT 96
[2023-12-03 03:00] VITALS: BP 111/75; PULSE 62; RESP 18; TEMP 36.2; O2SAT 97
[2023-12-03] MEDS: HYDROCODONE/ACET 5/325 TABLET 1 TAB PO ×2 (06:18→12:25)
[2023-12-03 08:00] VITALS: BP 138/83; PULSE 77; RESP 18; TEMP 36.6; O2SAT 97
[2023-12-03] MEDS: BREZTRI 2 EACH PO (08:35)
[2023-12-03] MEDS: methocarbamoL 500 MG TABLET PO (08:35)
--- NOTE | 2023-12-03 09:21 | DI.RAD.S_ITS ---
PROCEDURE: XR CHEST 1V INDICATIONS: chest tube TECHNIQUE: One view of the chest was acquired. COMPARISON: [facility], CR, XR CHEST 1V, 12/01/2023, 14:03. [facility], CR, XR CHEST 1V, 11/30/2023, 13:58. [facility], CR, XR CHEST 1V, 11/30/2023, 10:51. [facility], CR, XR CHEST 1V, 12/02/2023, 10:35. FINDINGS: Surgical changes and devices: There is a chest tube on the left, unchanged in position. Lungs and pleura: Trace left apical pneumothorax is appears stable. No pleural effusions or pneumothorax. Mediastinum: Mediastinal contours appear normal. Heart size is normal. Bones and chest wall: No suspicious bony lesions. Overlying soft tissues appear unremarkable. IMPRESSION: Stable trace left apical pneumothorax. Dictated by: Wyatt Johnson M.D. on 12/03/2023 at 9:36 Approved by: Wyatt Johnson M.D. on 12/03/2023 at 9:40
--- NOTE | 2023-12-03 09:30 | P.PN_ITS ---
Subjective Subjective Date Patient Seen: 12/03/23 Time Patient Seen: 09:30 Interval history: No new complaints. Exam Vital Signs (past 8 hours): - 12/03/23 03:00 12/03/23 08:00 Temperature 97.1 F L 97.8 F Pulse Rate 62 77 Respiratory Rate 18 18 Blood Pressure 111/75 138/83 Pulse Oximetry 97 97 Oxygen Flow Rate 0 0 Fraction of Inspired Oxygen 36 SaO2/FiO2 Ratio 269 Oxygen Delivery Method Room Air Oxygen Flow Rate 0 Narrative Exam Narrative: No air leak No respiratory oscillation Objective Labs 11/30/23 10:39 11/30/23 10:39 [facility] Social History household members: spouse Smoking Status: Former smoker alcohol intake: never Assessment & Plan Assessment and plan (1) Pneumothorax on left: Status: Acute Plan Will check a CXR If no PTX will proceed with a clamp trial
--- NOTE | 2023-12-03 09:59 | PC.NURSE ---
Addendum entered by Oscar Funez R.N. 12/03/23 11:44: Spoke with Dr. Lane regarding CT. CXR done per orders. CT clamped @11:30 will get CXR at 14:30. Original Note: Pt alert and oriented sitting up in bed watching TV. Offers no overt c/o. Plans on an x-ray then clamp CT repeat x-ray. once done Pt would like tube pulled if stable and then go home this evening.
--- NOTE | 2023-12-03 10:17 | CM.DPC ---
DCP Cont. Reviewed EMR and team rounds for status updates. Plan is to trial clamping off the chest tube today to see how pt tolerates, if stable, then he my discharge either later this evening or tomorrow morning. Will continue to monitor for any final d/c needs, however none are expected at this time.
[2023-12-03 12:00] VITALS: BP 123/77; PULSE 68; RESP 16; TEMP 36.3; O2SAT 98
--- NOTE | 2023-12-03 14:30 | DI.RAD.S_ITS ---
PROCEDURE: XR CHEST 1V INDICATIONS: assess left pneumo. TECHNIQUE: One view of the chest was acquired. COMPARISON: [facility], CR, XR CHEST 1V, 12/03/2023, 9:47. [facility], CR, XR CHEST 1V, 12/02/2023, 10:35. FINDINGS: Surgical changes and devices: Left chest tube is unchanged. The tube is located in the periphery of the thorax. Suture material in both lungs. Lungs and pleura: Lungs appear clear. No pleural effusions. Trace left pneumothorax. Mediastinum: Mediastinal contours appear normal. Heart size is normal. Bones and chest wall: No suspicious bony lesions. Overlying soft tissues appear unremarkable. IMPRESSION: No significant interval change. Trace left pneumothorax. Stable left chest tube. Dictated by: Pee Serrano M.D. on 12/03/2023 at 17:12 Approved by: Pee Serrano M.D. on 12/03/2023 at 17:15
--- NOTE | 2023-12-03 16:54 | PC.NURSE ---
Pt is dressed and ready for discharge home with Spouse. IV has been removed. Went over d/c instructions with Pt and Spouse. Discussed d/c meds, time of last dose reviewed stroke education, reminded Pt to take it easy and report to his PCP or the ER any signs of chest pain or shortness of breath. Pt denied further questions and was taken out via w/c by [facility] to POV with Spouse and all belongings.
--- NOTE | 2023-12-23 10:09 | P.DS_ITS ---
History of Present Illness History of Present Illness Chief complaint: SOB Narrative: Karl is a 47-year-old man who presented to the emergency department today with acute onset left chest pain and shortness of breath. An emergent chest tube was placed in the ER by Dr. Chiu for a left pneumothorax with good results. 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 Dr. Chiu spoke to the thoracic surgeon at [facility] who recommended admission for chest tube management and recommended at least 2 days of wall suction before transitioning to water seal. 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 He was hospitalized for 3 days during which time he never had evidence of a visible air leak. He had a residual trace pneumothorax on chest x-rays. The chest tube was removed on the third day and he was discharged home in good condition. Exam Vital Signs (past 8 hours): Fraction of Inspired Oxygen 36 SaO2/FiO2 Ratio 269 Oxygen Delivery Method Room Air Oxygen Flow Rate 0 Objective Labs 11/30/23 10:39 11/30/23 10:39 [facility] Social History household members: spouse Smoking Status: Former smoker alcohol intake: never Discharge Plan Discharge Plan Patient Disposition: Home Discharge orders & Medications Prescriptions: Continued ipratropium-albuterol [Combivent Respimat] 20-100 mcg/actuation mist 2 puff INHALATION BID Qty: 4 5RF albuterol sulfate 90 mcg/actuation HFA aerosol inhaler 2 puff INHALATION QID PRN (Reason: shortness of breath) Qty: 6.7 5RF methocarbamol 500 mg Tablet 500 mg PO BID oxycodone 5 mg Tablet 5 mg PO Q4H PRN (Reason: Pain, Moderate) acetaminophen 325 mg Tablet 325 mg PO QID PRN (Reason: Pain (Scale Score 4-6)) ibuprofen 200 mg Tablet 200 mg PO Q6H PRN (Reason: Pain (Scale Score 4-6)) omeprazole 20 mg Tablet,Delayed Release (Dr/Ec) 20 mg PO DAILY Breztri Aerosphere 160-9-4.8 mcg/actuation Hfa Aerosol Inhaler 2 inh INHALATION BID Medication counseling provided by Pharmacist: Yes Follow up/Referrals: Walker Greenfield MD [Primary Care Provider] - Visit Report/Discharge Packet Instructions: DI for Groin Hernia, DI for Chronic Obstructive Pulmonary Disease, DI for Pneumothorax, DI for Prescription Opioid Use Stand Alone Forms: Patient Portal/API, Stroke Signs & Symptoms Discharge Data Primary Care Provider: Walker Greenfield
== END 2023-12-03 16:56 | disposition home or self-care (01) | DRG 201 ==
LOC: ED 11:56 → AC 11:59 → ICU 12:26 → AC 12-01 09:43
PROVIDERS: Admitting Provider Surgery; Emergency Provider Emergency Medicine; PCP Family Medicine; Referring Provider Emergency Medicine; Visit Provider Surgery
DX: J95.811 Postprocedural pneumothorax (principal); J44.9 Chronic obstructive pulmonary disease, unspecified; Z98.890 Other specified postprocedural states; Z87.891 Personal history of nicotine dependence
CPT/HCPCS: 0241U; 32551; 36415; 71045; 80053; 83690; 85025; 87797; 94762; 96374; 96375; 96376; 99221; 99231; 99238; 99285; 99291; 99292; J2270; J2405